=== PATIENT | female | born 1970 | race Caucasian/White ===

== ENCOUNTER → 2023-04-06 08:54 | Outpatient (REF) | payer BC, SELFPAY | LOC: HWRAD 08:54 | PROVIDERS: ATTENDING PHYSICIAN Physician Assistant Medical | DX: R10.11 Right upper quadrant pain (principal) | CPT/HCPCS: 76700 ==

== ENCOUNTER 2023-12-01 22:52 | Inpatient (IN) | payer BC, SELFPAY ==
[2023-12-01] VITALS (7 sets, daily range): BP systolic 85–104; BP diastolic 52–60; BMI 28.4
[2023-12-01] MEDS: TYLENOL 1000 MG PO (19:26)
[2023-12-01 19:30] LABS: % Basophils 0.3 % (0-2); % Eosinophils 2.9 % (0-6); % Immature Granulocytes 0.6 % (0-0.5); % Monocytes 5.7 % (1.7-9.3); % Neutrophils 73.5 % (42.2-75.2); Absolute Eosinophils 0.2 10^3/uL (0-0.7); Absolute Lymphocytes 1.1 10^3/uL (1.2-3.4); Absolute Monocytes 0.4 10^3/uL (0.1-0.6); Absolute Neutrophils 4.6 10^3/uL (1.4-6.5); Hematocrit 31.6 % (37.0-47.0); Mean Corp Hgb Conc. 34.8 g/dL (33.0-37.0); Mean Corpuscular Hgb 28.9 pg (27.0-31.0); Mean Corpuscular Volume 82.9 fL (81.0-99.0); Mean Platelet Volume 10.1 fL (7.4-10.4); Nucleated Red Blood Cells % 0 %; Platelet Count 159 10^3/uL (130-400); Red Blood Cell Count 3.81 10^6/uL (4.20-5.40); Red Cell Dist. Width 12.4 % (11.5-14.5); White Blood Cell Count 6.3 10^3/uL (4.8-10.8)
[2023-12-01 19:50] LABS: ALT (SGPT) 25 U/L (0-35); AST (SGOT) 40 U/L (14-36); Alkaline Phosphatase 61 U/L (38-126); Blood Urea Nitrogen 14 mg/dl (7-17); Calcium 8.5 mg/dl (8.4-10.2); Carbon Dioxide 27 mmol/L (22-30); Chloride 99 mmol/L (98-107); Estimated Creatinine Clearance 81 ml/min; Glucose 125 mg/dl (70-99); Potassium 3.7 mmol/L (3.5-5.1); Sodium 137 mmol/L (135-145); Total Bilirubin 0.6 mg/dl (0.2-1.3); Total Protein 6.3 g/dl (6.3-8.2); eGFR > 60.00
[2023-12-01 20:01] LABS: Lactic Acid 0.8 mmol/L (0.7-2.0)
--- NOTE | 2023-12-01 20:34 | ED.GENMED ---
History of Present Illness
General
Chief Complaint: Fainting/Passed Out
Source: patient
Exam Limitations: none
Time Seen by Provider: 12/01/23 20:11
History of Present Illness
History of Present Illness:
This is a 53 year old female that comes in with c/o syncope. States that she has not felt well all weak. States that she had a fever so yesterday she went to the PCP. States that he thought it was Pneumonia and they decided to just treat patient
without X-ray. States that she went home and took Zithromax 500mg and in 1 hour she vomited this back up. States that she feels worse today. States that her chest hurts and she can't take a deep breath. States that her throat feels wore and her
right ear hurts. States that today she was on the [employer] and went into the kitchen to get something to eat and she said that she must have fainted as she felt herself going over like a tree and hitting her hip. states that he called her and
she did not respond. States that she was starting to sit up when he got there and her eyes were glazed. States that she has had fever with chills, chest pain with breathing, SOB, vomiting yesterday and a headache. Denies any abd pain, nausea,
diarrhea, dizziness, urinary burning.
Past History
Past History
ED Past Medical History: Other (PNA); Negative Asthma, HTN, Hypercholesterolemia or NIDDM
ED Past Surgical History: Cholecystectomy, and Other (Spinal cord tumor removed)
Social History
Tobacco: Non-smoker
Alcohol: Occasional
Personal:
Living: with family
Review of Systems
Review of Systems
All Other Systems: ROS reviewed and negative except as documented in HPI and ROS
Constitutional: Reports fever and chills
EENT: Reports sore throat
Respiratory: Reports cough and trouble breathing
Cardiac: Reports chest pain
ABD/GI: Reports vomiting (Yesterday); Denies abdominal pain, nausea or diarrhea
: Reports no symptoms; Denies dysuria, frequency or urgency
Musculoskeletal: Reports no symptoms
Skin: Reports no symptoms
Neurological: Reports headache; Denies dizzy
Psychiatric: Reports no symptoms
Phy Exam
General Physical Exam
General Presentation: no apparent distress
General age: appears stated age
General Skin: cool and other (Sweaty, )
General Habitus: normal
General Mental: alert
General Hydration: dry mucous membranes
ENT Exam
ENT Exam: TM's normal, pharynx normal and neck supple
Eye Exam
Eye Exam: EOMI
Cardiovascular Exam
Cardiovascular Exam: regular rate/rhythm, no edema, no murmur and normal peripheral pulses
Pulmonary Exam
Pulmonary Exam: no respiratory distress, chest non tender, no rhonchi, no wheezing, no cough and other (Course breath sound left base)
Gastrointestinal Exam
Gastrointestinal Exam: normal bowel sounds, non tender, soft, no organomegaly, no pulsatile mass and non distended
Musculoskeletal Exam
Musculoskeletal Exam: full ROM and no edema
Skin Exam
Skin Exam: normal color, warm/dry, no rash and no petechia
Psychiatric Exam
Psychiatric Exam: normal mood/affect
Sepsis
Sepsis Screening
Sepsis Assessment: Sepsis Ruled Out
Sepsis Screen
Sepsis Screen: Sepsis Ruled Out
Date: 12/01/23
Time: 22:09
Course
Orders/Labs/Results
Orders:
Orders
12/01/23 19:11
Electrocardiogram (*1) Urgent
Reason for Study: Other
Other Reason for Exam: Respiratory Distress
Cardiac Monitoring- Treatment ONCE
EKG- Treatment ONCE
IV Insert/Care/Rem.- Treatment PRN
CR Chest - 2 Views Urgent
Comment:
Reason For Exam: respiratory distress
O2 Therapy [RESP] Urgent
Titrate/Wean O2 to maintain O2 sat greater than (%): 93
Special Instructions: TO MAINTAIN CONTINUOUS O2 SATS >/= 93%
Pulse Ox/cont/shift [RESP] Urgent
Quantity: 1
Special Instructions: continuous pulse ox
12/01/23 19:22
Complete Blood Count/With Diff Urgent
Comprehensive Metabolic Panel Urgent
12/01/23 19:24
Acetaminophen [Tylenol] 1,000 mg .ROUTE .STK-MED ONE
12/01/23 19:25
Acetaminophen [Tylenol] 1,000 mg PO NOW STA
12/01/23 19:43
Lactic Acid Urgent
12/01/23 20:44
Ibuprofen [Motrin] 600 mg PO NOW STA
12/01/23 20:49
Doxycycline [Vibramycin] 100 mg PO NOW STA
12/01/23 21:33
0.9% Sodium Chloride 1000 ml [Nss] 1,000 ml IV BOLUS
Abnormal Lab Results
12/01/23
19:22
RBC 3.81 L 10^6/uL
(4.20-5.40)
Hgb 11.0 L g/dL
(12.0-16.0)
Hct 31.6 L %
(37.0-47.0)
Absolute Lymphs (auto) 1.1 L 10^3/uL
(1.2-3.4)
Immature Gran % 0.6 H %
(0-0.5)
Lymphocytes % 17.0 L %
(20.5-51.1)
Glucose 125 H mg/dl
(70-99)
AST 40 H U/L
(14-36)
12/01/23 19:22
12/01/23 19:22
H/H slightly low. Hyperglycemia. AST mildly elevated. lactic acid normal at 0.8
Vital Signs
Initial and Last Documented VS:
Initial Vital Signs
Pulse Resp Pulse Ox
99 19 95
12/01/23 19:11 12/01/23 19:11 12/01/23 19:11
Last Documented Vital Signs
Temp Pulse Resp BP Pulse Ox
102.8 F H 94 12 85/52 95
12/01/23 19:12 12/01/23 20:00 12/01/23 20:00 12/01/23 21:30 12/01/23 22:00
MDM/Problems Addressed
Differential Diagnosis Includes:
PNA, Syncope. Dehydration.
MDM/Problems Addressed:
This is a 53 year old female that has been sick all week with fever. Told yesterday that she probable had Pneumonia and was given Zithromax. patient Vomited 1 hour after the first dose. States that today she had a syncope episode.
Will check labs and Chest x-ray
Back into see patient. Explained that there is a minimal left lower lobe Pneumonia. Patient BP is running very low. With Syncope will admit patient and explained it may just be for over night. Hospitalist notified.
Chronic conditions affecting care:
NA
Acute Exacerbation and/or Progression of Chronic Illness:
NA
*Radiology
Radiology exam reviewed: radiology read reviewed (Chest- minimal patchy left basilar opacification suspicious for Pneumonia)
*Pulse Oximetry
Patient hypoxic: no
*EKG
Interpreted by ED Provider?: Yes
Heart Rate: 101
Rate: tachycardiac
Rhythm: sinus
Holden: normal axis
Interval: normal interval
QRS Pattern: normal QRS
Ischemia: no ischemia
*Cylinder Checker Interpretation
Rate: Cylinder Checker- N/A
*Critical Care Note
Total Time (30-74mins, 75-104mins- exclusive of procedures): Not Applicable
ED Attending Note
-
Portions of this chart may have been created with voice recognition software.� Occasional wrong word or��sound alike� substitutions may have occurred due to the inherent limitations of voice recognition software.
Discharge Plan
Departure
Patient Disposition: Admit
Date of Disposition: 12/01/23
Time of Disposition: 22:07
Admit to: Telemetry
Presentation/result/management discussed w/ accepting MD/DO: Hospitalist
Patient with high blood pressure during this ER visit?: No
Condition: Good
Covid-19: Not Applicable
Discharge Problem:
Left lower lobe pneumonia, Syncope
Referrals:
Kevin Loza PA-C [Family Provider] -
Interventions
Interventions:
*Risk Screen - Suicide Last Done: 12/01/23 19:12
*General Assessment Last Done: 12/01/23 19:12
*Neglect/Abuse Screening Last Done: 12/01/23 19:12
*ED COVID-19 Vaccine History Last Done: 12/01/23 19:12
PW-Nmalaj-Hbrqmpuspv Assessment Last Done: 12/01/23 19:30
ED- Cardiac Assessment Last Done: 12/01/23 19:30
ED- Neurological Assessment Last Done: 12/01/23 19:30
Discharge Date and Time
Print Language: KHMER
[2023-12-01] MEDS: MOTRIN 600 MG PO (21:27)
[2023-12-01] MEDS: VIBRAMYCIN 100 MG PO (21:27)
[2023-12-01] MEDS: NSS 1000 IV ×2 (21:34→23:14)
--- NOTE | 2023-12-01 22:37 | HPS.HSE ---
Family Physician
-
Family Physician: Kevin Loza PA-C
Chief Complaint
-
Fainted at home and fever
History of Present Illness
HPI
53F HX Depression on Fluoxetine seen at ER for evaluation of weakness and passed out at home witnessed by
- reports fever yesterday
- reports cough with colored sputum
- Evaluated by PCP and suggest clinical PNA , started on Zithromax 500mg but vomited 1 hr later.
- No OP CXR.
- reports CP with deep breathing
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
- reports she felt herself going over like a tree and hitting her hip.
- states that he called her and she did not respond.
- She was starting to sit up when he got there and her eyes were glazed.
- Denied prior HX PNA
On SQ tripeptide (,Zebound) GLP1 for Wt loss since Mar
- she loss 35 lbs over 8 moths
- Poor appetite
ROS:
fever with chills, chest pain with breathing, SOB, vomiting yesterday and a headache.
Denies any abd pain, nausea, diarrhea, dizziness, urinary burning.
Medical History
Past Medical History
Past Medical History: Reports Other (PNA )
Past Surgical History: Reports None
Social History
Tobacco: Non-smoker
Alcohol: Occasional
Personal:
Living: With Family
Family History
Family History: Not pertinent
Allergies / Home Medications
Allergies reflects when Allergies were last updated in [employer].
Home Medications with original date entered in [employer]
Allergy/Medication List:
Allergies
Allergy/AdvReac Type Severity Reaction Status Date / Time
amoxicillin [Amoxicillin] Allergy Hives Verified 12/01/23 19:06
sulfamethoxazole Allergy Hives Verified 12/01/23 19:06
[From Bactrim]
trimethoprim [From Bactrim] Allergy Hives Verified 12/01/23 19:06
Review of Systems
-
Constitutional: Reports Fever
EENT: Reports No Symptoms
Respiratory: Reports No Symptoms
Cardiac: Reports Syncope
Abdomen/GI: Reports No Symptoms
: Reports No Symptoms
Musculoskeletal: Reports No Symptoms
Skin: Reports No Symptoms
Neurological: Reports Other (syncope )
Endocrine: Reports No Symptoms
Hematologic/Lymphatic: Reports No Symptoms
Psych: Reports No Symptoms
Physical Exam
Vital Signs
Vital Signs
Temp Pulse Resp BP Pulse Ox
102.8 F H 94 12 90/53 94
12/01/23 19:12 12/01/23 20:00 12/01/23 20:00 12/01/23 22:00 12/01/23 22:15
Physical Exam
General: Well Developed, Well Nourished and No Apparent Distress
HEENT: NormoCephalic, Moist mucous membranes and Atraumatic
Respiratory: Clear
Cardiac: S1/S2 and Regular Rhythm; No Murmur or Rub
GI: Soft, Non Tender, Non Distended and Normal Bowel Sounds; No Organomegaly
Rectal: Deferred by Provider
Musculoskeletal: No Clubbing, No Cyanosis and No Edema
Skin: No Rash
Neuro: Nonfocal/grossly intact
Laboratory Results
-
12/01/23 19:22
12/01/23 19:22
Laboratory Results
Lactic Acid Cancelled 12/01/23 20:44
Total Bilirubin 0.6 mg/dl (0.2-1.3) 12/01/23 19:22
AST 40 U/L (14-36) H 12/01/23 19:22
ALT 25 U/L (0-35) 12/01/23 19:22
Alkaline Phosphatase 61 U/L (38-126) 12/01/23 19:22
Data Reviewed
-
Diagnostic Radiology: Report Reviewed by me
Lab Data: Labs Reviewed by me
Impression/Plan
-
Vital Signs
Temp Pulse Resp BP Pulse Ox
102.8 F H 94 12 90/53 94
12/01/23 19:12 12/01/23 20:00 12/01/23 20:00 12/01/23 22:00 12/01/23 22:15
Data
WCC 6.3
Hgb 11.0
Cr 0.8
eGFR > 60
CXR: Minimal patchy left basilar opacification suspicious for pneumonia.
ASSESSMENT & PLAN
PNA @Lt base presumed CAP with productive cough with colored sputum
Associated sepsis with hypotension
Associated Vasovagal syncope due to hypotension
Dehydration
No prior PNA
- pending procalcitonin
- s/p 1 L NS at ER. Second bolus 1L NS then matianace IV NS @ 100/H
- IV LVQ in place of PO Doxy
- supplemental O2 to keep POx > 94
- EKG now and in AM to monitor QTc
- BCx
On SQ GLP1 Receptor agonist Tirzepatide (,Zebound) for Wt loss since Mar
- she loss 35 lbs over 8 moths
- re[port Poor appetite and low BP
- Hold Tirzepatide
HX Depression
- stable on Fluoxetine
DVT Px: LMWH
Full code
IP TLM for syncope
[2023-12-01] MEDS: FLAGYL 500 MG 100 IV (23:22)
[2023-12-01 23:51] LABS: Procalcitonin 0.09 ng/ml (0.0-0.25)
[2023-12-02] VITALS (9 sets, daily range): BP systolic 73–106; BP diastolic 44–64; PULSE 72–80; BMI 28.4
[2023-12-02 00:04] LABS: COVID-19 Antigen Negative (Negative)
[2023-12-02] MEDS: NSS 1000 IV ×2 (01:08→11:58)
--- NOTE | 2023-12-02 02:02 | TRANSFER ---
pt arrived from ED via stretcher accompanied by RN. pt was a standby assist walking from stretcher to bed. AAOx3. afebrile, HR in 70s, pulse ox 95% on room air. pt was hypotensive in ED and upon arrival to floor. lying BP 86/54 HR 79, sitting BP
84/45 HR 77, standing BP 73/44 HR 80. [employer]PER[employer]OR made aware, no new orders at this time. NSS running at 100 ml/hr, also encouraging PO intake. instructed pt to not get OOB without assistance, placed pt on bed alarm. pt oriented to room, at present laying
comfortably in bed. plan of care ongoing.
[2023-12-02 08:04] LABS: % Basophils 0.3 % (0-2); % Eosinophils 0.5 % (0-6); % Immature Granulocytes 0.3 % (0-0.5); % Monocytes 9.1 % (1.7-9.3); % Neutrophils 53.8 % (42.2-75.2); Absolute Lymphocytes 1.4 10^3/uL (1.2-3.4); Absolute Monocytes 0.4 10^3/uL (0.1-0.6); Absolute Neutrophils 2.1 10^3/uL (1.4-6.5); Hematocrit 26.2 % (37.0-47.0); Hemoglobin 9.1 g/dL (12.0-16.0); Mean Corp Hgb Conc. 34.7 g/dL (33.0-37.0); Mean Corpuscular Hgb 30.3 pg (27.0-31.0); Mean Corpuscular Volume 87.3 fL (81.0-99.0); Mean Platelet Volume 10.1 fL (7.4-10.4); Nucleated Red Blood Cells % 0 %; Platelet Count 109 10^3/uL (130-400); Red Cell Dist. Width 12.6 % (11.5-14.5); White Blood Cell Count 3.8 10^3/uL (4.8-10.8)
[2023-12-02] MEDS: PROZAC 20 MG PO (08:13)
[2023-12-02 08:14] LABS: ALT (SGPT) 22 U/L (0-35); AST (SGOT) 27 U/L (14-36); Albumin 2.9 g/dl (3.5-5.0); Alkaline Phosphatase 49 U/L (38-126); Blood Urea Nitrogen 9 mg/dl (7-17); Calcium 7.9 mg/dl (8.4-10.2); Carbon Dioxide 24 mmol/L (22-30); Chloride 108 mmol/L (98-107); Estimated Creatinine Clearance 107 ml/min; Glucose 89 mg/dl (70-99); Potassium 3.5 mmol/L (3.5-5.1); Sodium 141 mmol/L (135-145); Total Bilirubin 0.3 mg/dl (0.2-1.3); eGFR > 60.00
[2023-12-02] MEDS: LEVAQUIN 150 IV (09:21)
--- NOTE | 2023-12-02 09:37 | W.PN.HOSP.TC ---
Today's Communication/Plan
-
See PN
Assessment / Plan
Assessment / Plan
53yo F with PMHx of anxiety came after fall with LOC at home. Was down for appr 30sec without prodrome or residual confusion. Was sick with upper respiraytory disease with cough and high fevers for 6 days before admission. Found possible LLL
pneumonia, improved significantly on IVF and Abx, however procalcitonin was low
Son was sick with the same symptoms couple of weeks before
A/P:
#LLL possible viral pneumonia with unspecified organism
#Hoarseness
COVID-19 neg
Check influenza
Switch to Levaquin, plan short course vs to switch to Doxy upon d/c
#Syncope, most likely vaso-vagal vs dehydration 2/2 acute disease and poor oral intake
Telemetry without clinically significant arrhythmia
check orthostatics
IVF
#Anxiety
cont home meds
#Anemia
#Thrombocytopenia
most liekly 2/2 viral disease and IVF (dilutional)
FOllow with PCP upon d/c
#Hx of obesity with weight loss on Zepbound
cont to follow with PCP
DVT ppx lovenox
Full code
I have spent at least 58min reviewing chart, test results, communication with consultants and direct patient care
Anticipated Discharge: Within 24 hours
Subjective/Interval History
-
Date of Service: December 02, 2023
Objective Data
-
Labs:
Laboratory Results
12/02/23
06:51
WBC 3.8 L
Hgb 9.1 L
Hct 26.2 L
Plt Count 109 L D
Sodium 141
Potassium 3.5
Chloride 108 H
Carbon Dioxide 24
BUN 9
Creatinine 0.6
Glucose 89
Calcium 7.9 L
Total Bilirubin 0.3
AST 27
ALT 22
Alkaline Phosphatase 49
Vital Signs:
Vital Signs
Temp Pulse Resp BP Pulse Ox
98.4 F 71 14 92/55 95
12/02/23 07:55 12/02/23 07:55 12/02/23 07:55 12/02/23 07:55 12/02/23 07:55
I&O
12/01/23 12/02/23 12/03/23
06:59 06:59 06:59
Intake Total 480 / 480
Balance 480 / 480
Review of Systems
-
History Source: Patient
All other systems: Reviewed and negative
Physical Exam
-
General: No Apparent Distress
HEENT: Normocephalic
Respiratory: Clear to Auscultation
Cardiac: Regular Rhythm
GI: Soft, Nontender and Nondistended
Genito-urinary: No Costovertebral Tender
Musculoskeletal: No Clubbing, No Cyanosis and No Edema
Skin: Warm
Neuro: Awake, Alert, Oriented and AO x 3
Psych: Calm
--- NOTE | 2023-12-02 12:34 | CM ---
Patient seen at bedside with
IA completed
Lives in a 2 story home, 2 steps to enter, flight of steps second floor
Ambulates without AD, works from home, drives
Denies DME
no needs anticipated
PCP: Kevin Loza
Pharmacy: [facility]
PLAN: home, no anticipated needs
to transport
[2023-12-02 13:06] LABS: % Basophils 0.3 % (0-2); % Eosinophils 0.5 % (0-6); % Immature Granulocytes 0.3 % (0-0.5); % Lymphocytes 22.7 % (20.5-51.1); % Monocytes 8.6 % (1.7-9.3); % Neutrophils 67.6 % (42.2-75.2); Absolute Lymphocytes 0.8 10^3/uL (1.2-3.4); Absolute Monocytes 0.3 10^3/uL (0.1-0.6); Absolute Neutrophils 2.5 10^3/uL (1.4-6.5); Hematocrit 28.2 % (37.0-47.0); Hemoglobin 9.7 g/dL (12.0-16.0); Mean Corp Hgb Conc. 34.4 g/dL (33.0-37.0); Mean Corpuscular Volume 87.3 fL (81.0-99.0); Mean Platelet Volume 10.3 fL (7.4-10.4); Nucleated Red Blood Cells % 0 %; Platelet Count 123 10^3/uL (130-400); Red Blood Cell Count 3.23 10^6/uL (4.20-5.40); Red Cell Dist. Width 12.5 % (11.5-14.5); White Blood Cell Count 3.7 10^3/uL (4.8-10.8)
--- NOTE | 2023-12-02 13:13 | W.DCSUMMARY ---
Addendum entered and electronically signed by Dean Kent MD 12/02/23 13:38:
Not orthostatic and not symptomatic on ambulation upon d/c. PSI risk class II - 58points, outpatient treatment is reasonable
Original Note:
Discharge Summary
Discharge Data
Date of Admission: 12/01/23
Date of Discharge: 12/02/23
-
Pending Results: No
Hospital Course
53yo F with PMHx of anxiety came after fall with LOC at home. Was down for appr 30sec without prodrome or residual confusion. Was sick with upper respiraytory disease with cough and high fevers for 6 days before admission. Found possible LLL
pneumonia, improved significantly on IVF and Abx, however procalcitonin was low
Son was sick with the same symptoms couple of weeks before.
Patient is medically stable for D/C. As poer patient - she used Keflex before without issues. With Fluoxetine - will avoid Levaquin due to QTc prolongation side-effect. Patient was counselled to watch for lips or throat swelling and go to ED right
away if any noted. She verbalized understanding and agreeable with plan.
I have spent at least 36min preparing d/c
A/P:
#LLL possible viral pneumonia with unspecified organism
#Hoarseness
#Syncope, most likely vaso-vagal vs dehydration 2/2 acute disease and poor oral intake
#Anxiety
#Anemia
#Thrombocytopenia
#Hx of obesity with weight loss on Zepbound
Discharge Plan
-
Patient Disposition: Home (Routine Discharge)
Discharge Diagnosis/Procedures: CAP
Diet: Regular
Activity: No restrictions
Driving Restrictions: As prior to admission
Referrals:
Kevin Loza PA-C [Family Provider] -
Prescriptions:
New
doxycycline hyclate 100 mg capsule
100 mg PO BID Qty: 14 0RF
cefuroxime axetil 500 mg tablet
500 mg PO Q12H Qty: 10 0RF
Continued
fluoxetine 20 mg Capsule
20 mg PO DAILY
Zepbound 7.5 mg/0.5 mL pen injector
7.5 mg SC Q7D
Discharge Orders:
Discharge Patient (As Directed); Ordered 12/02/23
Ordered By: Dean Kent
Discharge Date and Time
Print Language: SAO TOMEAN
== END 2023-12-02 15:39 | disposition home or self-care (01) | DRG 195 ==
LOC: 4 EAST ACU 22:52
PROVIDERS: Clinical Nurse Specialist Family Health; ADMITTING PHYSICIAN Internal Medicine; ATTENDING PHYSICIAN Internal Medicine; EMERGENCY PHYSICIAN Student in an Organized Health Care Education/Training Program; FAMILY PHYSICIAN Physician Assistant Medical
DX: J12.9 Viral pneumonia, unspecified (principal); R55 Syncope and collapse; R11.10 Vomiting, unspecified; R06.03 Acute respiratory distress; R63.0 Anorexia; F32.A Depression, unspecified; I95.9 Hypotension, unspecified; E86.0 Dehydration; F41.9 Anxiety disorder, unspecified; D64.9 Anemia, unspecified; R49.0 Dysphonia; D69.6 Thrombocytopenia, unspecified; Z87.01 Personal history of pneumonia (recurrent); Z88.1 Allergy status to other antibiotic agents; Z88.0 Allergy status to penicillin; Z88.2 Allergy status to sulfonamides
CPT/HCPCS: 71046; 80053; 83605; 84145; 85025; 87040; 87502; 87811; 93005; 94760; 96365; 97162; 99285

== ENCOUNTER → 2023-12-19 13:34 | Outpatient (REF) | payer BC, SELFPAY | LOC: HWRAD 13:34 | PROVIDERS: ATTENDING PHYSICIAN Nurse Practitioner Family | DX: R05.9 Cough, unspecified (principal) | CPT/HCPCS: 71046 ==

== ENCOUNTER 2024-12-01 06:28 | Day surgery (SDC) | payer BC, SELFPAY | END 2024-12-01 15:53 | disposition home or self-care (01) | LOC: GI 06:28 | PROVIDERS: ATTENDING PHYSICIAN Internal Medicine; FAMILY PHYSICIAN Physician Assistant Medical | DX: Z12.11 Encounter for screening for malignant neoplasm of colon (principal); K64.9 Unspecified hemorrhoids; Z86.0101 Personal history of adenomatous and serrated colon polyps | CPT/HCPCS: G0105 ==